=== PATIENT | male | born 1955 | race African-American/Black ===

== ENCOUNTER → 2020-04-28 | Outpatient (CLI) | payer OTHER ==
[2020-04-28 12:40] LABS: ABSOLUTE BASOPHILS # (AUTO) 0.1 10^3/uL (0.0-0.2); ABSOLUTE EOSINOPHILS # (AUTO) 0.6 10^3/uL (0.0-0.6); ABSOLUTE LYMPHOCYTES (AUTO) 0.6 10^3/uL (0.5-4.7); ABSOLUTE MONOCYTES (AUTO) 0.4 10^3/uL (0.1-1.4); ABSOLUTE NEUT (AUTO) 3.5 10^3/uL (1.7-8.2); EOSINOPHILS % (AUTO) 11.6 % (0-6); HEMOGLOBIN 12.5 g/dL (13.5-17.0); LYMPHOCYTES % (AUTO) 11.2 % (13-45); MEAN CORPUSCULAR HEMOGLOBIN 28.6 pg (27.0-33.4); MEAN CORPUSCULAR HGB CONC 33.7 g/dL (32.0-36.0); MEAN CORPUSCULAR VOLUME 85 fl (80-97); MONOCYTES % (AUTO) 7.2 % (3-13); PLATELET COUNT 218 10^3/uL (150-450); RED BLOOD COUNT 4.36 10^6/uL (4.35-5.55); RED CELL DISTRIBUTION WIDTH 16.2 % (11.5-14.0); TOTAL CELLS COUNTED % (AUTO) 100 %; WHITE BLOOD COUNT 5.1 10^3/uL (4.0-10.5)
[2020-04-28 12:46] LABS: INTERNATIONAL RATION (INR) 1.02; PROTHROMBIN TIME 13.6 SEC (11.4-15.4)
[2020-04-28 12:47] LABS: PARTIAL THROMBOPLASTIN TIME 33.9 SEC (23.5-35.8)
== END ==
LOC: OD 11:43
PROVIDERS: ATTEND Internal Medicine Pulmonary Disease
DX: J90 Pleural effusion, not elsewhere classified (principal)
CPT/HCPCS: 36415; 85025; 85610; 85730

== ENCOUNTER 2020-05-08 10:23 | Day surgery (SDC) | payer OTHER, MEDICARE ==
[2020-05-08 11:52] LABS: HEMATOCRIT 36.7 % (37.9-51.0); HEMOGLOBIN 12.4 g/dL (13.5-17.0); MEAN CORPUSCULAR HEMOGLOBIN 28.5 pg (27.0-33.4); MEAN CORPUSCULAR HGB CONC 33.7 g/dL (32.0-36.0); MEAN CORPUSCULAR VOLUME 85 fl (80-97); PLATELET COUNT 252 10^3/uL (150-450); RED BLOOD COUNT 4.33 10^6/uL (4.35-5.55); RED CELL DISTRIBUTION WIDTH 17.1 % (11.5-14.0); WHITE BLOOD COUNT 5.6 10^3/uL (4.0-10.5)
[2020-05-08 12:00] LABS: INTERNATIONAL RATION (INR) 0.99; PROTHROMBIN TIME 13.3 SEC (11.4-15.4)
[2020-05-08 12:01] LABS: PARTIAL THROMBOPLASTIN TIME 36.2 SEC (23.5-35.8)
[2020-05-08 12:11] LABS: BLOOD UREA NITROGEN 51 mg/dL (7-20)
--- NOTE | 2020-05-08 15:27 | RADIOLOGY REPORT (SQ) ---
EXAM DESCRIPTION: CHEST SINGLE VIEW IMAGES COMPLETED DATE/TIME: 05/08/2020 3:03 pm REASON FOR STUDY: post right thoracentesis COMPARISON: None. EXAM PARAMETERS: NUMBER OF VIEWS: One view. TECHNIQUE: Single frontal radiographic view of the chest acquired. RADIATION DOSE: NA LIMITATIONS: None. FINDINGS: LUNGS AND PLEURA: Small right pleural effusion. No pneumothorax. Left lung is clear. MEDIASTINUM AND HILAR STRUCTURES: No masses. Contour normal. HEART AND VASCULAR STRUCTURES: Cardiomegaly. Normal vasculature. BONES: No acute findings. HARDWARE: None in the chest. OTHER: No other significant finding. IMPRESSION: No pneumothorax status post right thoracentesis. TECHNICAL DOCUMENTATION: JOB ID: [id number] 2010 [email or web address]- All Rights Reserved Reading location - IP/workstation name: [email or web address]
--- NOTE | 2020-05-08 15:55 | RADIOLOGY REPORT (SQ) ---
EXAM DESCRIPTION: U/S THORACENTESIS WITH IMAGING IMAGES COMPLETED DATE/TIME: 05/08/2020 3:16 pm REASON FOR STUDY: PL EFF J90 PLEURAL EFFUSION, NOT ELSEWHERE CLASSIFIED COMPARISON: None. LIMITATIONS: None. PROCEDURE: Procedure, risks, benefit, and alternative explained to patient who then gave written con sent. The posterior right chest wall was marked using ultrasound guidance. A time-out was called fo r correct marking verification. Chest prepped and draped using sterile technique. Local anesthesia a chieved using 3.5 ml of 1% lidocaine injection. A 6fr Safe-T- Centesis set was introduced into the r ight pleural space. Fluid was aspirated. The catheter was removed and the entry site was covered wi th sterile bandage. No immediate complications noted. Images acquired during the procedure were stored on PACS. FINDINGS: ENTRY SITE: posterior right chest. FLUID VOLUME: 1050 cc FLUID ANALYSIS: Straw-colored OTHER: Fluid sent to the lab for testing. IMPRESSION: SUCCESSFUL THORACENTESIS USING ULTRASOUND GUIDANCE. COMMENT: Patient medication list reviewed: Yes- Quality ID# [id number]:Eligible professional attests to doc umenting in the medical record they obtained, updated, or reviewed the patient's current medications. TECHNICAL DOCUMENTATION: JOB ID: [id number] 2010 [employer]- All Rights Reserved Reading location - IP/workstation name: [email or web address]
[2020-05-08 16:44] VITALS: BP 176/64
--- NOTE | 2020-05-08 17:33 | RADIOLOGY REPORT (SQ) ---
EXAM DESCRIPTION: CHEST SINGLE VIEW IMAGES COMPLETED DATE/TIME: 05/08/2020 4:56 pm REASON FOR STUDY: 2 hour post right thoracentesis COMPARISON: Earlier the same day. EXAM PARAMETERS: NUMBER OF VIEWS: One view. TECHNIQUE: Single frontal radiographic view of the chest acquired. RADIATION DOSE: NA LIMITATIONS: None. FINDINGS: LUNGS AND PLEURA: No pneumothorax 2 hours following right-sided thoracentesis. MEDIASTINUM AND HILAR STRUCTURES: Unchanged. HEART AND VASCULAR STRUCTURES: Stable in appearance. BONES: No acute findings. HARDWARE: None in the chest. OTHER: No other significant finding. IMPRESSION: No pneumothorax 2 hours following right-sided thoracentesis. TECHNICAL DOCUMENTATION: JOB ID: [id number] 2010 [email or web address]- All Rights Reserved Reading location - IP/workstation name: [email or web address]
[2020-05-08 21:05] LABS: FLUID APPEARANCE SLIGHTLY HAZY; FLUID COLOR YELLOW; FLUID SOURCE LUNG; FLUID TYPE PLEURAL
[2020-05-08 21:06] LABS: FLUID VISCOSITY SLIGHTLY VISCOUS
[2020-05-10 11:53] LABS: TOTAL PROTEIN BODY FLUID < 0.2 g/dL (.)
== END 2020-05-08 17:03 | disposition home or self-care (01) ==
LOC: RAD 10:23
PROVIDERS: ATTEND Internal Medicine Pulmonary Disease
DX: J90 Pleural effusion, not elsewhere classified (principal); Z87.891 Personal history of nicotine dependence; E11.9 Type 2 diabetes mellitus without complications; I10 Essential (primary) hypertension; Z79.899 Other long term (current) drug therapy; Z79.4 Long term (current) use of insulin
CPT/HCPCS: 32555; 36415; 71045; 82565; 82945; 82962; 83615; 83986; 84157; 84520; 85027; 85610; 85730; 87015; 87070; 87075; 87101; 87116; 87205; 87206; 88305; 89050